=== PATIENT | male | born 1990 | race American Indian/Alaskan Native ===

== ENCOUNTER 2020-07-19 17:39 | Emergency (ER) | payer SELFPAY ==
[2020-07-19 19:32] VITALS: BP 113/78
--- NOTE | 2020-07-19 20:27 | Emergency Department Report ---
ED Laceration HPI - HPI Chief Complaint: Wound/Laceration Stated Complaint: LFT HAND/GLASS/INJURY Time Seen by Provider: 07/19/20 20:26 Occurred When: Yesterday Location: Upper Extremity Severity: mild Tetanus Status: Up to Date Laceration Symptoms: Yes Pain, No Foreign Body Sensation, No Numbness, No Weakness Other History: This 30-year-old male presents to ED with left hand pain from injury that happened around 10 PM last night. Patient states that he hit the TV with his left hand. Patient states that he has had some abrasions to the hand and bleeding that were controlled yesterday. Patient states he flushed it with some water otherwise no other. Patient states that his tetanus vaccine is up-to-date. Patient denies fever/chills or any other problems ED Review of Systems ROS: Stated complaint: LFT HAND/GLASS/INJURY Other details as noted in HPI Comment: All other systems reviewed and negative ED Past Medical Hx - Past Medical History Previous Medical History?: No - Surgical History Past Surgical History?: No - Social History Smoking Status: Never Smoker Substance Use Type: None - Medications Home Medications: Home Medications Medication Instructions Recorded Confirmed Last Taken Type Bacitracin/Polymixin B [Polysporin] 1 applicatio TP BID #1 tube 07/19/20 Unknown Rx cephALEXin [Keflex] 500 mg PO Q12HR #10 cap 07/19/20 Unknown Rx Laceration Physical Exam - Exam General: Vital signs noted. No distress. Alert and acting appropriately. Wound Length (cm): 1 (Abrasion) Laceration Location: Upper Extremity Laceration Exam: Yes Normal Distal CMS, No Foreign Body, No Exposed Tendon, Vessel, or Nerve, No Tendon Injury ED Course Vital Signs 07/19/20 19:31 Temperature 98.0 F Pulse Rate 63 Respiratory 16 Rate Blood Pressure 113/78 O2 Sat by Pulse 98 Oximetry - Laceration /Wound Repair Left Posterior Hand Wound Location: upper extremity Wound Length (cm): 1 Wound's Depth, Shape: superficial, irregular Wound Explored: clean Betadine Prep?: No Wound Repaired With: Steri-strips, Dermabond Layer Closure?: No Sterile Dressing Applied?: Yes ED Medical Decision Making - Radiology Data Radiology results: report reviewed, image reviewed LEFT HAND 2 VIEWS INDICATION / CLINICAL INFORMATION: lac/pain to lft hand COMPARISON: None available. FINDINGS: BONES / JOINT(S): No acute fracture or subluxation. No significant arthritis. SOFT TISSUES: No significant abnormality. ADDITIONAL FINDINGS: None. Signer Name: Aristeo Su MD Signed: 07/19/2020 8:23 PM Workstation Name: [id number] Transcribed By: ES Dictated By: Aristeo Su MD Electronically Authenticated By: Aristeo Su MD Signed Date/Time: 07/19/202022 - Medical Decision Making 30-year-old female presents with 3 separate abrasions to the left hand. Hand was x-rayed with normal findings, no foreign body noted. Patient was recently closed and healing. Morning patient was slightly open which was approximated with Steri-Strips. Discussed with patient application of Neosporin topically. Patient received prescription to cover infection. Vital signs are normal. Patient is in no acute distress. Critical care attestation.: If time is entered above; I have spent that time in minutes in the direct care of this critically ill patient, excluding procedure time. ED Disposition Clinical Impression: Abrasion of hand without infection Disposition: DC-01 TO HOME OR SELFCARE Is pt being admited?: No Does the pt Need Aspirin: No Condition: Stable Instructions: Abrasion, Wound Care, Adult Additional Instructions: Take your medication as prescribed. Follow-up with primary care physician. If you have any worsening symptoms you may return to ED. Prescriptions: cephALEXin [Keflex] 500 mg PO Q12HR #10 cap Bacitracin/Polymixin B [Polysporin] 1 applicatio TP BID #1 tube Referrals: [facility] [Outside] - 3-5 Days [facility] [Outside] - 3-5 Days [facility] [Outside] - 3-5 Days Forms: Work/School Release Form(ED) Time of Disposition: 20:58
== END 2020-07-19 21:34 | disposition home or self-care (01) ==
LOC: ED 17:39
DX: S60.512A Abrasion of left hand, initial encounter (principal); Z79.899 Other long term (current) drug therapy; W31.9XXA Contact with unspecified machinery, initial encounter; Y93.89 Activity, other specified; Y92.89 Other specified places as the place of occurrence of the external cause; Y99.8 Other external cause status
CPT/HCPCS: 99283